=== PATIENT | female | born 1995 | race American Indian/Alaskan Native ===

== ENCOUNTER 2017-05-21 15:41 | Emergency (ER) | payer OTHER ==
[2017-05-21 16:37] VITALS: BMI 20.1
[2017-05-21 16:38] VITALS: RESP 20; O2SAT 100
[2017-05-21] MEDS ORDERED: Naproxen 550 mg Tab PO STA (17:25)
[2017-05-21] MEDS ORDERED: Naproxen 550 mg Tab PO ONE (17:36)
[2017-05-21 18:13] VITALS: BP 102/69; PULSE 101; TEMP 99.3
--- NOTE | 2017-05-21 18:43 | C.PDOC ---
History Of Present Illness 21 y/o female presents to the ER for evaluation of fever, chills, body aches, non-productive cough, sore throat, and headache since the morning. Patient denies having chest pain, shortness of breath, abdominal pain, and dysuria. Patient does not have any other medical complaints. Time Seen by Provider: 05/21/17 16:54 Chief Complaint (Nursing): Fever History Per: Patient History/Exam Limitations: no limitations Onset/Duration Of Symptoms: Hrs Current Symptoms Are (Timing): Still Present Associated Symptoms: Fever, Chills, Sore Throat, Cough, Nasal Congestion Severity: Moderate Past Medical History Reviewed: Historical Data, Nursing Documentation, Vital Signs Vital Signs: Last Vital Signs Temp 99.3 F 05/21/17 18:12 Pulse 101 H 05/21/17 18:12 Resp 20 05/21/17 18:12 BP 102/69 05/21/17 18:12 Pulse Ox 100 05/21/17 19:23 - Medical History PMH: No Chronic Diseases Surgical History: No Surg Hx Family History: States: No Known Family Hx - Social History Hx Alcohol Use: No Hx Substance Use: No - Immunization History Hx Tetanus Toxoid Vaccination: Yes Hx Influenza Vaccination: No Hx Pneumococcal Vaccination: No Review Of Systems Except As Marked, All Systems Reviewed And Found Negative. Constitutional: Positive for: Fever, Chills, Malaise ENT: Positive for: Throat Pain Cardiovascular: Negative for: Chest Pain Respiratory: Positive for: Cough (non-productive cough). Negative for: Shortness of Breath Gastrointestinal: Negative for: Abdominal Pain Genitourinary: Negative for: Dysuria Neurological: Positive for: Headache Physical Exam - Physical Exam Appears: Non-toxic, No Acute Distress, Other (mildly uncomfortable) Skin: Normal Color, Warm (felt warm to touch) Head: Atraumatic, Normacephalic Eye(s): bilateral: Normal Inspection, PERRL Oral Mucosa: Moist Throat: Erythema (mild erythema), Other (no tonsil swelling, no exudates) Neck: Supple Chest: Symmetrical Cardiovascular: Rhythm Irregular (tachycardic) Respiratory: Normal Breath Sounds, No Accessory Muscle Use, No Rales, No Rhonchi , No Wheezing Extremity: Normal ROM Neurological/Psych: Oriented x3, Normal Speech, Normal Cognition, Normal Motor, Normal Sensation ED Course And Treatment O2 Sat by Pulse Oximetry: 100 (RA) Pulse Ox Interpretation: Normal Progress Note: CXR ordered. Patient given flu swab. Patient given Naproxen. Disposition Counseled Patient/Family Regarding: Studies Performed, Diagnosis, Need For Followup, Rx Given - Disposition Referrals: [facility] [Outside] Disposition: HOME/ ROUTINE Disposition Time: 18:40 Condition: STABLE Additional Instructions: FOLLOW UP WITH YOUR DOCTOR IN 1-2 DAYS USE MEDICATIONS DIRECTED DRINK PLENTY OF FLUIDS AND GET REST RETURN TO ER IF SYMPTOMS WORSEN Prescriptions: Benzonatate [Tessalon Perles] 100 mg PO BID PRN #15 sgl PRN Reason: Cough Naproxen 375 mg PO BID PRN #20 tablet PRN Reason: pain Instructions: Viral Syndrome (ED) Forms: [facility] (Arabic), Work Excuse Print Language: [id number] - POA Present On Arrival: None - Clinical Impression Clinical Impression: Viral syndrome - Scribe Statement The provider has reviewed the documentation as recorded by the Shirin Talley Provider Attestation: All medical record entries made by the Shirin were at my direction and personally dictated by me. I have reviewed the chart and agree that the record accurately reflects my personal performance of the history, physical exam, medical decision making, and the department course for this patient. I have also personally directed, reviewed, and agree with the discharge instructions and disposition.
--- NOTE | 2017-05-22 08:32 | RAD ---
HISTORY: cough, fever COMPARISON: None TECHNIQUE: Chest PA and lateral FINDINGS: LUNGS: No focal consolidation is seen. PLEURA: No pleural effusion is identified. CARDIOVASCULAR: Heart size is within normal limits. OSSEOUS STRUCTURES: Visualized osseous structures are unremarkable. VISUALIZED UPPER ABDOMEN: Unremarkable. OTHER FINDINGS: None. IMPRESSION: No acute cardiopulmonary process seen.
== END 2017-05-21 18:15 | disposition home or self-care (01) ==
LOC: C.ER 15:41
DX: B34.9 Viral infection, unspecified (principal)